=== PATIENT | female | born 1955 | race Caucasian/White ===

== ENCOUNTER 2021-10-21 13:58 | Emergency (ER) | payer OTHER ==
[2021-10-21 14:28] VITALS: BP 139/79; PULSE 61; TEMP 98.2; BMI 23.3
[2021-10-21] MEDS ORDERED: SODIUM CHLORIDE 1,000 ML IV STA (15:00)
[2021-10-21] MEDS ORDERED: ACETAMINOPHEN 1000 MG/100 ML BAG IVPB ONE (15:00)
[2021-10-21] MEDS ORDERED: ACETAMINOPHEN INJECTION 100 ML IVPB ONE (15:08)
[2021-10-21 15:43] LABS: BASO % 0.8 % (0-2.0); EOS % 7.1 % (0-4.5); HEMATOCRIT 37.7 % (32.4-45.2); LYMPH % 43.9 % (8-40); MCH 33.3 pg (25.7-33.7); MCHC 34.5 g/dl (32.0-36.0); MEAN CELL VOLUME 96.5 fl (80-96); MEAN PLT VOLUME 6.9 fl (7.5-11.1); MONO % 9.1 % (3.8-10.2); NEUT % 39.1 % (42.8-82.8); PLATELET COUNT 285 10^3/uL (134-434); RBC 3.91 M/mm3 (3.60-5.2); RDW 13.3 % (11.6-15.6); WHITE BLOOD COUNT 5.5 K/mm3 (4.0-10.0)
[2021-10-21 16:06] LABS: CALCIUM 9.8 mg/dL (8.5-10.1)
[2021-10-21 16:07] LABS: ALBUMIN 3.4 g/dl (3.4-5.0)
[2021-10-21 16:09] LABS: CREATININE 0.7 mg/dL (0.55-1.3)
[2021-10-21 16:11] LABS: BILIRUBIN,TOTAL 0.2 mg/dL (0.2-1); TOT PROT 6.7 g/dl (6.4-8.2)
[2021-10-21 16:12] LABS: PH,URINE 6.5 (5.0-8.0); URINE APPEARANCE CLEAR; URINE BILIRUBIN NEGATIVE (NEGATIVE); URINE COLOR YELLOW; URINE GLUCOSE (UA) NEGATIVE (NEGATIVE); URINE KETONE NEGATIVE (NEGATIVE); URINE LEUK ESTERASE NEGATIVE (NEGATIVE); URINE NITRITE NEGATIVE (NEGATIVE); URINE PROTEIN NEGATIVE (NEGATIVE); URINE UROBILINOGEN 0.2 mg/dL (0.2-1.0)
[2021-10-21] MEDS ORDERED: metroNIDAZOLE 250 MG TABLET PO ONE (17:07)
[2021-10-21] MEDS ORDERED: metroNIDAZOLE 250 MG TABLET ONE (17:18)
== END 2021-10-21 17:49 | disposition home or self-care (01) ==
LOC: JER 13:58
PROC: 3E033GC Introduction of Other Therapeutic Substance into Peripheral Vein, Percutaneous Approach (ICD-10-PCS; principal; 2021-10-21)
DX: N83.202 Unspecified ovarian cyst, left side (principal); K57.90 Diverticulosis of intestine, part unspecified, without perforation or abscess without bleeding
CPT/HCPCS: 36415; 74177-TC; 80053; 81003; 83690; 85025; 99285-25; Q9967